=== PATIENT | male | born 1980 | race Caucasian/White ===

== ENCOUNTER 2024-05-08 12:12 | Inpatient (IN) | payer OTHER ==
[2024-05-08 14:08] VITALS: BMI 21.9
[2024-05-08] MEDS ORDERED: IBUPROFEN 600 MG TABLET (FP) PO PRN (14:46)
[2024-05-08] MEDS ORDERED: BENZONATATE 200 MG CAPSULE PO PRN (14:46)
[2024-05-08] MEDS ORDERED: NALOXONE (NARCAN) HCL 4 MG/0.1 ML SPRAY NS PRN (14:46)
[2024-05-08] MEDS ORDERED: BENZOCAINE/MENTHOL (CHLORASEPTIC ) LOZENGE MM PRN (14:46)
[2024-05-08] MEDS ORDERED: NALOXONE HCL 0.4 MG/ML VIAL IM PRN (14:46)
[2024-05-08] MEDS ORDERED: ONDANSETRON *ODT* 4 MG TABLET SL PRN (14:46)
[2024-05-08] MEDS ORDERED: BISMUTH SUBSALICYLATE 524 MG/30 ML PO PRN (14:46)
[2024-05-08] MEDS ORDERED: DICYCLOMINE HCL 10 MG CAPSULE PO PRN (14:46)
[2024-05-08] MEDS ORDERED: LOPERAMIDE HCL 2 MG CAPSULE PO PRN (14:46)
[2024-05-08] MEDS ORDERED: MAG HYDROX/AL HYDROX/SIMETH 30 ML UNIT-DOSE CUP PO PRN (14:46)
[2024-05-08] MEDS ORDERED: IBUPROFEN 400 MG TABLET (FP) PO PRN (14:46)
[2024-05-08] MEDS ORDERED: MAGNESIUM HYDROX 2400MG/30ML ORAL SUSPENSION 30 ML CUP PO PRN (14:46)
[2024-05-08] MEDS ORDERED: guaiFENesin 600 MG TABLET.ER (FP) PO PRN (14:46)
[2024-05-08] MEDS ORDERED: POLYETHYLENE GLYCOL (HEALTHYLAX) 3350 17 GM PACKET PO PRN (14:46)
[2024-05-08] MEDS ORDERED: PRENATAL VITAMINS W/ FOLIC ACID TABLET (FP) PO ONE (16:56)
[2024-05-08] MEDS ORDERED: NICOTINE 14 MG/24 HOURS TOPICAL PATCH TD ONE (16:56)
[2024-05-08] MEDS: NICOTINE 14 MG/24 HOURS TOPICAL PATCH TD SCH (17:03)
[2024-05-08] MEDS: PRENATAL VITAMINS W/ FOLIC ACID TABLET (FP) PO SCH (17:04)
[2024-05-08] MEDS: diazePAM 5 MG TABLET PO SCH (22:20)
[2024-05-08] MEDS: THIAMINE 100 MG TABLET PO SCH (22:20)
[2024-05-08] MEDS: MELATONIN 5 MG TABLETS PO SCH (22:21)
[2024-05-09 11:22] LABS: CHLORIDE 107 mmol/L (98-107); POTASSIUM 4.7 mmol/L (3.5-5.1); SODIUM 140 mmol/L (136-145)
[2024-05-09 11:25] LABS: HEMATOCRIT 39.1 % (35.4-49); HEMOGLOBIN 13.1 GM/dL (11.7-16.9); MCH 30.6 pg (25.7-33.7); MCHC 33.6 g/dl (32.0-35.9); MEAN PLT VOLUME 11.9 fl (7.5-11.1); PLATELET COUNT 241 10^3/uL (134-434); RDW 13.1 % (11.9-15.9); WHITE BLOOD COUNT 7.9 K/mm3 (4.0-10.0)
[2024-05-09 11:37] LABS: GLUCOSE,RANDOM 85 mg/dL (74-106); SGPT/ALT 25 U/L (13-61)
[2024-05-09 11:39] LABS: BILIRUBIN,TOTAL 0.4 mg/dL (0.2-1); BLOOD UREA NITROGEN 10.5 mg/dL (7-18); CREATININE 0.8 mg/dL (0.55-1.3); TOT PROT 6.2 g/dl (6.4-8.2)
[2024-05-09 11:40] LABS: ALK PHOS 90 U/L (45-117); ANION GAP 4 mmol/L (4-13); CALCIUM 9.1 mg/dL (8.5-10.1); CO2 29 mmol/L (21-32)
[2024-05-09 11:41] LABS: SGOT/AST 20 U/L (15-37)
[2024-05-10] MEDS: diazePAM 5 MG TABLET PO SCH (05:30)
[2024-05-10] MEDS: hydrOXYzine PAMOATE 25 MG CAPSULE (FP) PO PRN (09:39)
[2024-05-10] MEDS: METHOCARBAMOL 500 MG TABLET PO PRN (09:39)
[2024-05-10 16:14] LABS: HIV INTERPRETATION NEGATIVE (NEGATIVE)
[2024-05-10] MEDS: ACETAMINOPHEN 325 MG TABLET (FP) PO PRN (18:55)
[2024-05-10] MEDS: NICOTINE POLACRILEX 2 MG GUM BUC PRN (20:36)
[2024-05-11] MEDS: diazePAM 5 MG TABLET PO SCH (05:41)
[2024-05-11] MEDS: diazePAM 5 MG TABLET PO PRN (10:16)
[2024-05-11] MEDS: HALOPERIDOL 1 MG TABLET PO PRN (11:49)
[2024-05-11] MEDS: SUVOREXANT 10 MG TABLET PO PRN (22:30)
[2024-05-12] MEDS: diazePAM 5 MG TABLET PO ONE (05:33)
[2024-05-12 08:42] VITALS: BP 123/74; PULSE 89; RESP 18; TEMP 97.7
== END 2024-05-12 09:40 | disposition home or self-care (01) | DRG 772 ==
LOC: YASAS 12:12 → Y6N 17:08
PROVIDERS: ADMIT Allergy & Immunology; ATTEND Surgery
PROC: HZ42ZZZ Group Counseling for Substance Abuse Treatment, Cognitive-Behavioral (ICD-10-PCS; principal; 2024-05-08)
DX: F10.230 Alcohol dependence with withdrawal, uncomplicated (principal); F14.20 Cocaine dependence, uncomplicated; F12.20 Cannabis dependence, uncomplicated; F17.210 Nicotine dependence, cigarettes, uncomplicated; F19.280 Other psychoactive substance dependence with psychoactive substance-induced anxiety disorder; F19.282 Other psychoactive substance dependence with psychoactive substance-induced sleep disorder; F20.9 Schizophrenia, unspecified; G35 Multiple sclerosis; Z56.0 Unemployment, unspecified; Z59.00 Homelessness unspecified; Z88.8 Allergy status to other drugs, medicaments and biological substances; R79.89 Other specified abnormal findings of blood chemistry
CPT/HCPCS: 36415; 80053; 80305; 80307; 82140; 85027; 86780; 87389; 93005; 93010

== ENCOUNTER 2024-07-15 17:18 | Inpatient (IN) | payer OTHER ==
[2024-07-15 18:08] VITALS: BMI 20.1
[2024-07-15] MEDS ORDERED: DICYCLOMINE HCL 10 MG CAPSULE PO PRN (18:21)
[2024-07-15] MEDS ORDERED: NICOTINE POLACRILEX 2 MG GUM BUC PRN (18:21)
[2024-07-15] MEDS ORDERED: MAG HYDROX/AL HYDROX/SIMETH 30 ML UNIT-DOSE CUP PO PRN (18:21)
[2024-07-15] MEDS ORDERED: MAGNESIUM HYDROX 2400MG/30ML ORAL SUSPENSION 30 ML CUP PO PRN (18:21)
[2024-07-15] MEDS ORDERED: guaiFENesin 600 MG TABLET.ER (FP) PO PRN (18:21)
[2024-07-15] MEDS ORDERED: ONDANSETRON *ODT* 4 MG TABLET SL PRN (18:21)
[2024-07-15] MEDS ORDERED: POLYETHYLENE GLYCOL (HEALTHYLAX) 3350 17 GM PACKET PO PRN (18:21)
[2024-07-15] MEDS ORDERED: BENZONATATE 200 MG CAPSULE PO PRN (18:21)
[2024-07-15] MEDS ORDERED: NICOTINE POLACRILEX 2 MG LOZENGE BC PRN (18:21)
[2024-07-15] MEDS ORDERED: BENZOCAINE/MENTHOL (CHLORASEPTIC ) LOZENGE MM PRN (18:21)
[2024-07-15] MEDS ORDERED: ACETAMINOPHEN 325 MG TABLET (FP) PO PRN (18:21)
[2024-07-15] MEDS: chlordiazePOXIDE HCL 25 MG CAPSULE PO PRN (19:03)
[2024-07-15] MEDS ORDERED: LOPERAMIDE HCL 2 MG CAPSULE ONE ×2 (19:16→19:26)
[2024-07-15] MEDS ORDERED: chlordiazePOXIDE HCL 25 MG CAPSULE ONE (19:16)
[2024-07-15] MEDS: chlordiazePOXIDE HCL 25 MG CAPSULE PO SCH (22:02)
[2024-07-15] MEDS: MELATONIN 5 MG TABLETS PO SCH (22:02)
[2024-07-15] MEDS: THIAMINE 100 MG TABLET PO SCH (22:03)
[2024-07-16 09:55] LABS: HEMATOCRIT 40.5 % (35.4-49); HEMOGLOBIN 13.7 GM/dL (11.7-16.9); MCH 29.9 pg (25.7-33.7); MCHC 33.7 g/dl (32.0-35.9); MEAN CELL VOLUME 88.7 fl (80-96); MEAN PLT VOLUME 11.7 fl (7.5-11.1); PLATELET COUNT 255 10^3/uL (134-434); RBC 4.57 M/mm3 (4.00-5.60); RDW 14.3 % (11.9-15.9); WHITE BLOOD COUNT 8.3 K/mm3 (4.0-10.0)
[2024-07-16 10:09] LABS: CHLORIDE 105 mmol/L (98-107); POTASSIUM 4.2 mmol/L (3.5-5.1); SODIUM 140 mmol/L (136-145)
[2024-07-16 10:10] LABS: CALCIUM 9.3 mg/dL (8.5-10.1)
[2024-07-16 10:11] LABS: ALBUMIN 2.9 g/dl (3.4-5.0); ANION GAP 8 mmol/L (4-13); BLOOD UREA NITROGEN 18.4 mg/dL (7-18); CO2 27 mmol/L (21-32); GLUCOSE,RANDOM 103 mg/dL (74-106)
[2024-07-16 10:14] LABS: CREATININE 0.8 mg/dL (0.55-1.3); SGOT/AST 15 U/L (15-37); SGPT/ALT 15 U/L (13-61)
[2024-07-16 10:16] LABS: TOT PROT 5.7 g/dl (6.4-8.2)
[2024-07-16 10:17] LABS: ALK PHOS 83 U/L (45-117)
[2024-07-16] MEDS: PRENATAL VITAMINS W/ FOLIC ACID TABLET (FP) PO SCH (10:17)
[2024-07-16 10:48] LABS: BILIRUBIN,TOTAL 0.3 mg/dL (0.2-1)
[2024-07-16 12:08] LABS: HIV INTERPRETATION NEGATIVE (NEGATIVE)
[2024-07-16] MEDS: SUVOREXANT 10 MG TABLET PO PRN (22:24)
[2024-07-17] MEDS ORDERED: chlordiazePOXIDE HCL 25 MG CAPSULE PO SCH (05:00)
[2024-07-17] MEDS: chlordiazePOXIDE HCL 10 MG CAPSULE PO SCH (06:01)
[2024-07-17] MEDS: hydrOXYzine PAMOATE 25 MG CAPSULE (FP) PO PRN (07:50)
[2024-07-17] MEDS: METHOCARBAMOL 500 MG TABLET PO PRN (07:50)
[2024-07-17] MEDS: HALOPERIDOL 1 MG TABLET PO PRN (10:59)
[2024-07-18] MEDS: chlordiazePOXIDE HCL 10 MG CAPSULE PO SCH (05:27)
[2024-07-18] MEDS: chlordiazePOXIDE HCL 10 MG CAPSULE PO PRN (10:58)
[2024-07-18] MEDS: LOPERAMIDE HCL 2 MG CAPSULE PO PRN (11:00)
[2024-07-19] MEDS: chlordiazePOXIDE HCL 10 MG CAPSULE PO ONE (05:29)
[2024-07-19 06:23] VITALS: PULSE 80
[2024-07-19 08:42] VITALS: BP 102/62; RESP 18; TEMP 97.7
== END 2024-07-19 11:05 | disposition home or self-care (01) | DRG 774 ==
LOC: YASAS 17:18 → Y3N 18:52 → Y6N 20:11
PROVIDERS: ADMIT Allergy & Immunology; ATTEND Surgery
PROC: HZ2ZZZZ Detoxification Services for Substance Abuse Treatment (ICD-10-PCS; principal; 2024-07-15)
DX: F10.230 Alcohol dependence with withdrawal, uncomplicated (principal); F14.20 Cocaine dependence, uncomplicated; F12.20 Cannabis dependence, uncomplicated; F17.210 Nicotine dependence, cigarettes, uncomplicated; F20.9 Schizophrenia, unspecified; F19.282 Other psychoactive substance dependence with psychoactive substance-induced sleep disorder; F19.280 Other psychoactive substance dependence with psychoactive substance-induced anxiety disorder; G35 Multiple sclerosis; Z88.8 Allergy status to other drugs, medicaments and biological substances
CPT/HCPCS: 36415; 80053; 80305; 80307; 85027; 87389

== ENCOUNTER 2024-08-12 13:02 | Inpatient (IN) | payer OTHER ==
[2024-08-12 13:37] VITALS: BMI 21.1
[2024-08-12] MEDS ORDERED: BENZONATATE 200 MG CAPSULE PO PRN (14:00)
[2024-08-12] MEDS ORDERED: guaiFENesin 600 MG TABLET.ER (FP) PO PRN (14:00)
[2024-08-12] MEDS ORDERED: MAGNESIUM HYDROX 2400MG/30ML ORAL SUSPENSION 30 ML CUP PO PRN (14:00)
[2024-08-12] MEDS ORDERED: ONDANSETRON *ODT* 4 MG TABLET SL PRN (14:00)
[2024-08-12] MEDS ORDERED: POLYETHYLENE GLYCOL (HEALTHYLAX) 3350 17 GM PACKET PO PRN (14:00)
[2024-08-12] MEDS ORDERED: ACETAMINOPHEN 325 MG TABLET (FP) PO PRN (14:00)
[2024-08-12] MEDS ORDERED: DICYCLOMINE HCL 10 MG CAPSULE PO PRN (14:00)
[2024-08-12] MEDS ORDERED: BENZOCAINE/MENTHOL (CHLORASEPTIC ) LOZENGE MM PRN (14:00)
[2024-08-12] MEDS ORDERED: NICOTINE POLACRILEX 2 MG LOZENGE BC PRN (14:00)
[2024-08-12] MEDS ORDERED: NICOTINE POLACRILEX 2 MG GUM BUC PRN (14:00)
[2024-08-12] MEDS: hydrOXYzine PAMOATE 25 MG CAPSULE (FP) PO PRN (15:35)
[2024-08-12] MEDS ORDERED: chlordiazePOXIDE HCL 25 MG CAPSULE PO PRN (15:44)
[2024-08-12] MEDS: chlordiazePOXIDE HCL 25 MG CAPSULE PO SCH (17:22)
[2024-08-12] MEDS: LOPERAMIDE HCL 2 MG CAPSULE PO PRN (17:25)
[2024-08-12] MEDS: MAG HYDROX/AL HYDROX/SIMETH 30 ML UNIT-DOSE CUP PO PRN (17:25)
[2024-08-12] MEDS: MELATONIN 5 MG TABLETS PO SCH (22:36)
[2024-08-12] MEDS: THIAMINE 100 MG TABLET PO SCH (22:37)
[2024-08-12] MEDS: METHOCARBAMOL 500 MG TABLET PO PRN (22:37)
[2024-08-13] MEDS: PRENATAL VITAMINS W/ FOLIC ACID TABLET (FP) PO SCH (10:30)
[2024-08-14] MEDS: chlordiazePOXIDE HCL 25 MG CAPSULE PO SCH (05:55)
[2024-08-14 09:14] VITALS: RESP 18
[2024-08-14 13:43] VITALS: BP 95/53; PULSE 73; TEMP 97.6
[2024-08-14 14:28] LABS: HEMATOCRIT 42.6 % (35.4-49); HEMOGLOBIN 13.8 GM/dL (11.7-16.9); MCH 28.8 pg (25.7-33.7); MCHC 32.4 g/dl (32.0-35.9); MEAN CELL VOLUME 88.8 fl (80-96); MEAN PLT VOLUME 12.7 fl (7.5-11.1); PLATELET COUNT 253 10^3/uL (134-434); RDW 13.8 % (11.9-15.9); WHITE BLOOD COUNT 7.5 K/mm3 (4.0-10.0)
[2024-08-15] MEDS ORDERED: chlordiazePOXIDE HCL 10 MG CAPSULE PO PRN
[2024-08-15] MEDS ORDERED: chlordiazePOXIDE HCL 10 MG CAPSULE PO SCH (05:00)
[2024-08-16] MEDS ORDERED: chlordiazePOXIDE HCL 10 MG CAPSULE PO SCH (05:00)
[2024-08-17] MEDS ORDERED: chlordiazePOXIDE HCL 10 MG CAPSULE PO ONE (05:00)
== END 2024-08-14 14:41 | disposition left against medical advice (07) | DRG 770 ==
LOC: YASAS 13:02 → Y3N 14:22
PROVIDERS: ADMIT Neuromusculoskeletal Medicine & OMM; ATTEND Surgery
PROC: HZ2ZZZZ Detoxification Services for Substance Abuse Treatment (ICD-10-PCS; principal; 2024-08-12)
DX: F10.230 Alcohol dependence with withdrawal, uncomplicated (principal); F14.20 Cocaine dependence, uncomplicated; F17.210 Nicotine dependence, cigarettes, uncomplicated; F20.9 Schizophrenia, unspecified
CPT/HCPCS: 36415; 80305; 80307; 85027; 86780